=== PATIENT | male | born 1955 | race Caucasian/White ===

== ENCOUNTER 2020-08-23 11:30 | Inpatient (IN) | payer OTHER ==
[~2020-08-23] VITALS: Ht 162.6 cm; Wt 73.0 kg
[2020-08-23] MEDS ORDERED: MORPHINE SULFATE 4 MG/1ML SYG ONE ×2 (12:02→14:44)
[2020-08-23 12:35] LABS: BASOPHILS % (AUTO) 0.1 % (0.0-5.0); EOSINOPHILS % (AUTO) 0.9 % (0.0-8.0); HEMATOCRIT 42.8 % (42-54); LYMPHOCYTES % (AUTO) 9.5 % (21.0-51.0); MEAN CORPUSCULAR HEMOGLOBIN 28.9 pg (27.0-33.0); MEAN CORPUSCULAR HGB CONC 34.6 g/dL (32.0-36.0); MEAN CORPUSCULAR VOLUME 83.6 fL (79-99); MONOCYTES % (AUTO) 4.8 % (3.0-13.0); PLATELET COUNT (AUTO) 126 K/uL (130-400); RED BLOOD CELL COUNT(AUTO) 5.12 MIL/uL (4.50-6.20); RED CELL DISTRIBUTION WIDTH 13.4 % (11.0-15.5)
[2020-08-23 12:47] LABS: POTASSIUM 4.3 mmol/L (3.5-5.1)
[2020-08-23 12:51] LABS: PARTIAL THROMBOPLASTIN TIME 23.9 SEC (26.3-35.5); PROTHROMBIN TIME 10.8 SEC (9.6-11.6)
[2020-08-23 12:54] LABS: ALBUMIN 3.8 g/dL (3.5-5.0); BILIRUBIN,TOTAL 0.4 mg/dL (0.2-1.0); TOTAL PROTEIN, SERUM 7.1 g/dL (6.0-8.3)
[2020-08-23] MEDS ORDERED: ONDANSETRON HCL 4 MG/2 ML VIAL ONE (14:44)
[2020-08-23 15:12] LABS: APPEARANCE,URINE Clear (CLEAR); BILIRUBIN,URINE Negative (NEGATIVE); COLOR,URINE Yellow (YELLOW); GLUCOSE, URINE (UA) Negative (NEGATIVE); KETONES,URINE Trace mg/dL (NEGATIVE); LEUKOCYTE ESTERASE ,URINE Negative (NEGATIVE); NITRATE,URINE Negative (NEGATIVE); OCCULT BLOOD,URINE Negative (NEGATIVE); PROTEIN,URINE Negative (NEGATIVE); UROBILINOGEN,URINE 0.2 mg/dL (0.2-1.0)
[2020-08-23] MEDS ORDERED: HYDROMORPHONE 1 MG/1 ML AMP IV PRN (18:30)
[2020-08-23] MEDS ORDERED: ACETAMINOPHEN 325 MG TAB PO PRN ×2 (18:30)
[2020-08-23] MEDS ORDERED: HYDROMORPHONE HCL 0.5 MG/0.5 ML ML ONE (19:27)
[2020-08-23] MEDS: FAMOTIDINE/PF 20 MG/2 ML VIAL IV SCH (21:00)
[2020-08-24] VITALS (27 sets, daily range): BP systolic 100–157; BP diastolic 52–81
[2020-08-24] MEDS ORDERED: HYDROMORPHONE HCL 0.5 MG/0.5 ML ML ONE (01:24)
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
[2020-08-24] MEDS: MORPHINE SULFATE 4 MG/1ML SYG IV PRN ×2 (04:56→15:02)
[2020-08-24] MEDS: ONDANSETRON HCL 4 MG/2 ML VIAL IV PRN ×2 (05:00→22:12)
[2020-08-24 05:30] LABS: BASOPHILS % (AUTO) 0.1 % (0.0-5.0); EOSINOPHILS % (AUTO) 1.8 % (0.0-8.0); HEMATOCRIT 40.5 % (42-54); LYMPHOCYTES % (AUTO) 17.4 % (21.0-51.0); MEAN CORPUSCULAR HEMOGLOBIN 28.5 pg (27.0-33.0); MEAN CORPUSCULAR HGB CONC 34.1 g/dL (32.0-36.0); MEAN CORPUSCULAR VOLUME 83.5 fL (79-99); MONOCYTES % (AUTO) 8.7 % (3.0-13.0); NEUTROPHILS % (AUTO) 71.4 % (40.0-77.0); PLATELET COUNT (AUTO) 119 K/uL (130-400); RED BLOOD CELL COUNT(AUTO) 4.85 MIL/uL (4.50-6.20); RED CELL DISTRIBUTION WIDTH 13.4 % (11.0-15.5); WHITE BLOOD COUNT (AUTO) 7.1 K/uL (4.8-10.8)
[2020-08-24 05:33] LABS: ALBUMIN 3.5 g/dL (3.5-5.0); BILIRUBIN,TOTAL 0.9 mg/dL (0.2-1.0); CREATININE 1.1 mg/dL (0.5-1.5); POTASSIUM 4.2 mmol/L (3.5-5.1); TOTAL PROTEIN, SERUM 6.7 g/dL (6.0-8.3)
[2020-08-24] MEDS: FAMOTIDINE/PF 20 MG/2 ML VIAL IV SCH ×2 (07:59→23:26)
[2020-08-24] MEDS: KETOROLAC TROMETHAMINE 30MG/ML IM PRN (08:00)
--- NOTE | 2020-08-24 12:27 | NUR ---
IA NOT DONE. Phone number listed not answering.
[2020-08-24] MEDS: DEXTROSE 5 % AND 0.9 % NACL 1,000 ML IV SCH (15:15)
--- NOTE | 2020-08-24 16:16 | NUR ---
DCP CM met with pt in room discussed dc plans. Pt is independent prior to admission, lives at home with spouse. Denies any equipments/services. Feels safe to go back home, still drives, spouse able to assist with transportation and needs as necessary. DC plan to home once stable. CM to continue to follow up. Verified phys addr: [phone] [place] [address] Addendum: 08/24/20 at 1618 by DAVID NEWMAN LVN CM Amended: Links added.
[2020-08-24] MEDS ORDERED: SUCCINYLCHOLINE CHLORIDE 20 MG/ML 10 ML VIAL ONE (17:13)
[2020-08-24] MEDS ORDERED: LIDOCAINE PF 2% 5ML ABBOJECT ONE (17:13)
[2020-08-24] MEDS ORDERED: PROPOFOL 10 MG/ML 20ML VIAL IV ONE (17:14)
[2020-08-24] MEDS ORDERED: FENTANYL CITRATE PF 50 MCG/1 ML 2ML VIAL ONE ×2 (17:14→19:51)
[2020-08-24] MEDS ORDERED: ONDANSETRON HCL 4 MG/2 ML VIAL ONE (17:14)
[2020-08-24] MEDS ORDERED: MIDAZOLAM HCL 1 MG/ML 2ML VIAL ONE (17:14)
[2020-08-24] MEDS ORDERED: ROCURONIUM 10MG/1ML SYR 10 MG/ML ML ONE ×2 (17:14→18:58)
[2020-08-24] MEDS ORDERED: CEFAZOLIN SODIUM 1 GM VIAL ONE (17:16)
[2020-08-24] MEDS ORDERED: LACTATED RINGERS 1000ML 1,000 ML IV ONE (17:16)
[2020-08-24] MEDS ORDERED: TRANEXAMIC ACID 1000MG/10ML ONE (18:10)
[2020-08-24] MEDS ORDERED: MEPERIDINE-PF 25 MG/ML SYG ONE ×3 (18:14→20:52)
[2020-08-24] MEDS ORDERED: NEOSTIGMINE 5MG/5ML SYR IV ONE (19:48)
[2020-08-24] MEDS ORDERED: GLYCOPYRROLATE 1 MG/5 ML SYRINGE ONE (19:48)
[2020-08-24] MEDS ORDERED: ROPIVACAINE 0.5% 5MG/ML 30ML IJ ONE (19:53)
[2020-08-24] MEDS ORDERED: POTASSIUM CHLORIDE 10% ELIXIR 20 MEQ/15 ML UDCUP PO PRN (21:15)
[2020-08-24] MEDS ORDERED: ONDANSETRON HCL 4 MG/2 ML VIAL IVP PRN (21:15)
[2020-08-24] MEDS ORDERED: DiphenhydrAMINE HCL 50 MG/ML VIAL IVP PRN (21:15)
[2020-08-24] MEDS ORDERED: KETOROLAC TROMETHAMINE 15MG/ML IV PRN (21:15)
[2020-08-24] MEDS ORDERED: POTASSIUM CHLORIDE 20MEQ/100ML 100 ML IV PRN (21:15)
[2020-08-24] MEDS ORDERED: CALCIUM CARBONATE 500 MG TABLET PO PRN (21:15)
[2020-08-24] MEDS ORDERED: POTASSIUM CHLORIDE 20 MEQ ERTAB PO PRN (21:15)
[2020-08-24] MEDS: ACETAMINOPHEN EXTRA STRENGTH 500 MG TABLET PO SCH (21:15)
[2020-08-24] MEDS ORDERED: FERROUS FUMARATE 324 MG TABLET PO PRN (21:15)
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
[2020-08-24] MEDS: SODIUM CHLORIDE 0.9% 1000ML 1,000 ML IV SCH (23:25)
[2020-08-25] VITALS (9 sets, daily range): BP systolic 95–122; BP diastolic 51–77
[2020-08-25] MEDS: KETOROLAC TROMETHAMINE 30MG/ML IM PRN ×2 (00:37→16:23)
[2020-08-25] MEDS: CEFAZOLIN SODIUM 1 GM VIAL IVP SCH ×2 (02:12→10:52)
[2020-08-25 03:42] LABS: BASOPHILS % (AUTO) 0.2 % (0.0-5.0); EOSINOPHILS % (AUTO) 0.2 % (0.0-8.0); HEMATOCRIT 32.2 % (42-54); LYMPHOCYTES % (AUTO) 5.6 % (21.0-51.0); MEAN CORPUSCULAR HGB CONC 35.4 g/dL (32.0-36.0); MEAN CORPUSCULAR VOLUME 81.9 fL (79-99); MONOCYTES % (AUTO) 7.6 % (3.0-13.0); PLATELET COUNT (AUTO) 108 K/uL (130-400); RED BLOOD CELL COUNT(AUTO) 3.93 MIL/uL (4.50-6.20); RED CELL DISTRIBUTION WIDTH 13.1 % (11.0-15.5); WHITE BLOOD COUNT (AUTO) 9.1 K/uL (4.8-10.8)
[2020-08-25 03:56] LABS: CREATININE 1.2 mg/dL (0.5-1.5); MAGNESIUM 1.6 mg/dL (1.80-2.40); POTASSIUM 4.7 mmol/L (3.5-5.1)
[2020-08-25] MEDS: ACETAMINOPHEN EXTRA STRENGTH 500 MG TABLET PO SCH ×3 (05:55→21:26)
[2020-08-25] MEDS: DEXTROSE 5 % AND 0.9 % NACL 1,000 ML IV SCH ×2 (06:39→21:29)
[2020-08-25] MEDS ORDERED: MAGNESIUM 2GM PREMIX 50ML 50 ML IV SCH (08:15)
[2020-08-25] MEDS: POLYETHYLENE GLYCOL 3350 17 GM POWD.PACK PO SCH (09:00)
[2020-08-25] MEDS: ONDANSETRON HCL 4 MG/2 ML VIAL IV PRN ×2 (10:44→21:26)
[2020-08-25] MEDS: FAMOTIDINE/PF 20 MG/2 ML VIAL IV SCH ×2 (10:45→20:00)
[2020-08-25] MEDS: FAMOTIDINE 20MG TAB 20 MG TAB PO SCH ×2 (10:47→21:27)
[2020-08-25] MEDS: CELECOXIB 200 MG CAP PO SCH ×2 (10:47→21:26)
[2020-08-25] MEDS: PREGABALIN 25 MG CAP PO SCH ×2 (10:47→21:26)
[2020-08-25] MEDS: SODIUM CHLORIDE 0.9% 1000ML 1,000 ML IV SCH (17:15)
--- NOTE | 2020-08-25 18:00 | NUR ---
CALLED FOR UPDATE.
--- NOTE | 2020-08-25 20:00 | NUR ---
assessment and teaching patient awake, alert, ox3, no sob,no c/o pain at this time, encourage deep breathing exercises, teach patient plan of care and expected outcome , patients dressing right hip d/i, sitting bedside chair, patient verbalizes understanding via teach back
--- NOTE | 2020-08-25 21:25 | NUR ---
nursing obs assist back to bed with assistance of walker, tolerated well, instructed patient to call nurse for assistance
[2020-08-25] MEDS: OXYCODONE HCL 5 MG TAB PO PRN (21:26)
[2020-08-26] VITALS (7 sets, daily range): BP systolic 99–122; BP diastolic 42–64
[2020-08-26] MEDS: ACETAMINOPHEN EXTRA STRENGTH 500 MG TABLET PO SCH ×2 (05:09→14:07)
[2020-08-26 05:43] LABS: BASOPHILS % (AUTO) 0.1 % (0.0-5.0); CREATININE 1.2 mg/dL (0.5-1.5); EOSINOPHILS % (AUTO) 1.7 % (0.0-8.0); HEMATOCRIT 29.3 % (42-54); LYMPHOCYTES % (AUTO) 13.2 % (21.0-51.0); MAGNESIUM 2.3 mg/dL (1.80-2.40); MEAN CORPUSCULAR HEMOGLOBIN 28.8 pg (27.0-33.0); MEAN CORPUSCULAR HGB CONC 34.8 g/dL (32.0-36.0); MEAN CORPUSCULAR VOLUME 82.8 fL (79-99); MONOCYTES % (AUTO) 14.9 % (3.0-13.0); NEUTROPHILS % (AUTO) 69.5 % (40.0-77.0); PLATELET COUNT (AUTO) 89 K/uL (130-400); POTASSIUM 4.1 mmol/L (3.5-5.1); RED BLOOD CELL COUNT(AUTO) 3.54 MIL/uL (4.50-6.20); RED CELL DISTRIBUTION WIDTH 13.5 % (11.0-15.5); WHITE BLOOD COUNT (AUTO) 7.1 K/uL (4.8-10.8)
[2020-08-26] MEDS: OXYCODONE HCL 5 MG TAB PO PRN ×2 (08:56→19:45)
[2020-08-26] MEDS: PREGABALIN 25 MG CAP PO SCH ×2 (08:57→19:45)
[2020-08-26] MEDS: CELECOXIB 200 MG CAP PO SCH ×2 (08:57→19:45)
[2020-08-26] MEDS: FAMOTIDINE 20MG TAB 20 MG TAB PO SCH ×2 (08:57→19:45)
[2020-08-26] MEDS: FAMOTIDINE/PF 20 MG/2 ML VIAL IV SCH ×2 (09:00→19:46)
[2020-08-26] MEDS: POLYETHYLENE GLYCOL 3350 17 GM POWD.PACK PO SCH ×2 (09:00→09:45)
[2020-08-26 17:35] LABS: ALBUMIN 2.8 g/dL (3.5-5.0); BILIRUBIN,DIRECT 0.2 mg/dL (0.0-0.3); BILIRUBIN,TOTAL 0.7 mg/dL (0.2-1.0); TOTAL PROTEIN, SERUM 5.8 g/dL (6.0-8.3)
[2020-08-26] MEDS: ENOXAPARIN SODIUM 40 MG/0.4 ML SYRINGE SQ SCH (19:46)
--- NOTE | 2020-08-26 20:00 | NUR ---
assessment note patient awake alert, ox3, no sob, c/o pain, see pain assessment and treatment, reinforce is as previously done, teach patient plan of care and expected outcome, patient verbalizes understanding via teach back
[2020-08-27 04:33] VITALS: BP 114/68
[2020-08-27 06:10] LABS: HEMATOCRIT 27.3 % (42-54)
[2020-08-27] MEDS: POLYETHYLENE GLYCOL 3350 17 GM POWD.PACK PO SCH (07:53)
[2020-08-27] MEDS: OXYCODONE HCL 5 MG TAB PO PRN ×2 (07:54→20:46)
[2020-08-27] MEDS: CELECOXIB 200 MG CAP PO SCH ×2 (07:55→20:46)
[2020-08-27] MEDS: PREGABALIN 25 MG CAP PO SCH ×2 (07:55→20:46)
[2020-08-27] MEDS: FAMOTIDINE 20MG TAB 20 MG TAB PO SCH ×2 (07:56→20:46)
[2020-08-27] MEDS: ENOXAPARIN SODIUM 40 MG/0.4 ML SYRINGE SQ SCH (07:58)
[2020-08-27] MEDS: BISACODYL 5 MG TABLET.DR PO PRN (07:59)
[2020-08-27 08:33] VITALS: BP 106/57
[2020-08-27] MEDS: FAMOTIDINE/PF 20 MG/2 ML VIAL IV SCH ×2 (09:00→19:37)
[2020-08-27] MEDS ORDERED: COMPOUND IV MISC 1 EACH IVSOLN MISC PRN (09:00)
[2020-08-27] MEDS: IRON SUCROSE COMPLEX 100 MG in SODIUM CHLORIDE 0.9% 50 ML IV SCH (10:20)
[2020-08-27 11:44] VITALS: BP 97/73
--- NOTE | 2020-08-27 14:00 | NUR ---
CM note met with patient spouse and discussed rehab orders. pt states he prefers [facility] re[facility], and does not want to go to any snf, choice letter obtained.
[2020-08-27 16:58] VITALS: BP 111/66
[2020-08-27 20:18] VITALS: BP 103/54
--- NOTE | 2020-08-27 21:00 | NUR ---
BOWEL MOVEMENT PATIENT NO BOWEL MOVEMENT 3 DAYS, PT REFUSING DULCOLAX SUPP, EXPLAINED IMPORTANCE OF HAVING BOWEL MOVEMENT, PATIENT STATEED " IF I DONT HAVE BOWEL MOVEMENT TONIGHT I WILL TAKE SUPPOSITORY TOMORROW MORNING"
[2020-08-27] MEDS ORDERED: BISACODYL 10 MG SUPP.RECT RC PRN (21:15)
[2020-08-27 23:31] VITALS: BP 111/63
[2020-08-28 03:40] VITALS: BP 113/71
[2020-08-28 05:55] LABS: HEMATOCRIT 28.4 % (42-54)
[2020-08-28] MEDS: BISACODYL 5 MG TABLET.DR PO PRN (08:01)
[2020-08-28] MEDS: OXYCODONE HCL 5 MG TAB PO PRN ×3 (08:02→23:48)
[2020-08-28 08:23] VITALS: BP 103/51
[2020-08-28] MEDS: POLYETHYLENE GLYCOL 3350 17 GM POWD.PACK PO SCH (09:00)
[2020-08-28] MEDS: FAMOTIDINE/PF 20 MG/2 ML VIAL IV SCH ×2 (09:00→19:45)
[2020-08-28] MEDS ORDERED: MAGNESIUM CITRATE 296 ML SOLUTION PO SCH (09:15)
[2020-08-28] MEDS: PREGABALIN 25 MG CAP PO SCH ×2 (10:07→19:45)
[2020-08-28] MEDS: CELECOXIB 200 MG CAP PO SCH ×2 (10:07→19:45)
[2020-08-28] MEDS: FAMOTIDINE 20MG TAB 20 MG TAB PO SCH ×2 (10:07→19:45)
[2020-08-28] MEDS: ENOXAPARIN SODIUM 40 MG/0.4 ML SYRINGE SQ SCH (10:08)
[2020-08-28] MEDS: IRON SUCROSE COMPLEX 100 MG in SODIUM CHLORIDE 0.9% 50 ML IV SCH (11:17)
[2020-08-28 12:00] VITALS: BP 108/64
[2020-08-28 16:04] VITALS: BP 116/56
[2020-08-28 20:00] VITALS: BP 113/61
[2020-08-28] MEDS: MORPHINE SULFATE 4 MG/1ML SYG IV PRN (21:38)
[2020-08-28 23:51] VITALS: BP 115/70
[2020-08-29] MEDS: MORPHINE SULFATE 4 MG/1ML SYG IV PRN ×3 (00:56→19:29)
[2020-08-29] MEDS: OXYCODONE HCL 5 MG TAB PO PRN ×3 (03:27→17:56)
[2020-08-29 03:56] VITALS: BP 132/64
[2020-08-29] MEDS: PREGABALIN 25 MG CAP PO SCH ×2 (07:44→19:29)
[2020-08-29] MEDS: POLYETHYLENE GLYCOL 3350 17 GM POWD.PACK PO SCH (07:44)
[2020-08-29] MEDS: CELECOXIB 200 MG CAP PO SCH ×2 (07:44→19:29)
[2020-08-29] MEDS: FAMOTIDINE 20MG TAB 20 MG TAB PO SCH ×2 (07:45→19:29)
[2020-08-29] MEDS: ENOXAPARIN SODIUM 40 MG/0.4 ML SYRINGE SQ SCH (07:46)
[2020-08-29 08:15] VITALS: BP 127/76
[2020-08-29 08:22] LABS: BASOPHILS % (AUTO) 0.5 % (0.0-5.0); EOSINOPHILS % (AUTO) 2.7 % (0.0-8.0); LYMPHOCYTES % (AUTO) 19.2 % (21.0-51.0); MEAN CORPUSCULAR HEMOGLOBIN 28.8 pg (27.0-33.0); MEAN CORPUSCULAR HGB CONC 33.6 g/dL (32.0-36.0); MEAN CORPUSCULAR VOLUME 85.8 fL (79-99); MONOCYTES % (AUTO) 13.2 % (3.0-13.0); NEUTROPHILS % (AUTO) 62.7 % (40.0-77.0); PLATELET COUNT (AUTO) 144 K/uL (130-400); RED BLOOD CELL COUNT(AUTO) 3.37 MIL/uL (4.50-6.20); RED CELL DISTRIBUTION WIDTH 13.8 % (11.0-15.5)
[2020-08-29] MEDS: FAMOTIDINE/PF 20 MG/2 ML VIAL IV SCH ×2 (09:00→19:30)
[2020-08-29] MEDS: IRON SUCROSE COMPLEX 100 MG in SODIUM CHLORIDE 0.9% 50 ML IV SCH (09:05)
[2020-08-29 11:48] VITALS: BP 127/73
--- NOTE | 2020-08-29 14:20 | NUR ---
Pt. had stair training today in PM. Demonstrated and explained to pt. reasoning for going up with the good leg first and down with the bad leg first. Pt. returned demonstrated and understood instructions. No further questions from pt. Addendum: 08/29/20 at 1424 by JOSEY NEWMAN PT PT Amended: Links added.
--- NOTE | 2020-08-29 16:09 | NUR ---
GARETH PLAN VISITED WITH PATIENT. GAVE HIM UPDATES AND OPTIONS. SAID WILL GO HOME. JANET SIGNED FOR ANY IN NETWORK. WILL TRY FOR [facility]. SPOKE TO MIGUEL FROM WORK [facility] SAID THEY NEVER RECEIVED A REQUEST FROM [facility]. CALLED ME BACK WITH WHICH DME AND HOME HEALTH MIGHT BE IN NETWORK. INFO SENT TO BOTH CM WILL CONTINUE TO FOLLOW. Addendum: 08/29/20 at 1622 by WILBERT MCLAIN RN Amended: Links added.
[2020-08-29 17:02] VITALS: BP 122/75
[2020-08-29 20:00] VITALS: BP 108/53
[2020-08-29] MEDS ORDERED: TEMAZEPAM 7.5 MG CAPSULE PO PRN (22:15)
[2020-08-29] MEDS ORDERED: TEMAZEPAM 7.5 MG CAPSULE PO ONE (22:31)
[2020-08-30] VITALS: BP 123/62
[2020-08-30] MEDS ORDERED: HYDROMORPHONE HCL 2 MG/ML VIAL IVP PRN
[2020-08-30] MEDS: MORPHINE SULFATE 4 MG/1ML SYG IV PRN
[2020-08-30 04:04] VITALS: BP 100/73
[2020-08-30 05:44] LABS: BASOPHILS % (AUTO) 0.6 % (0.0-5.0); EOSINOPHILS % (AUTO) 3.6 % (0.0-8.0); HEMATOCRIT 28.4 % (42-54); LYMPHOCYTES % (AUTO) 18.6 % (21.0-51.0); MEAN CORPUSCULAR HEMOGLOBIN 28.3 pg (27.0-33.0); MEAN CORPUSCULAR HGB CONC 33.5 g/dL (32.0-36.0); MEAN CORPUSCULAR VOLUME 84.5 fL (79-99); MONOCYTES % (AUTO) 13.7 % (3.0-13.0); NEUTROPHILS % (AUTO) 58.2 % (40.0-77.0); PLATELET COUNT (AUTO) 144 K/uL (130-400); RED BLOOD CELL COUNT(AUTO) 3.36 MIL/uL (4.50-6.20); RED CELL DISTRIBUTION WIDTH 13.7 % (11.0-15.5); WHITE BLOOD COUNT (AUTO) 4.7 K/uL (4.8-10.8)
[2020-08-30 05:55] LABS: POTASSIUM 4.3 mmol/L (3.5-5.1)
[2020-08-30 07:41] LABS: BILIRUBIN,URINE Negative (NEGATIVE); COLOR,URINE Yellow (YELLOW); GLUCOSE, URINE (UA) Negative (NEGATIVE); KETONES,URINE Negative (NEGATIVE); LEUKOCYTE ESTERASE ,URINE Negative (NEGATIVE); NITRATE,URINE Negative (NEGATIVE); OCCULT BLOOD,URINE Negative (NEGATIVE); PH,URINE 7.5 (5.0-8.0); PROTEIN,URINE Negative (NEGATIVE)
[2020-08-30 07:47] LABS: APPEARANCE,URINE CLEAR (CLEAR)
[2020-08-30] MEDS: ENOXAPARIN SODIUM 40 MG/0.4 ML SYRINGE SQ SCH (08:03)
[2020-08-30] MEDS: OXYCODONE HCL 5 MG TAB PO PRN ×2 (08:04→17:29)
[2020-08-30 08:07] VITALS: BP 110/69
[2020-08-30] MEDS: FAMOTIDINE 20MG TAB 20 MG TAB PO SCH ×2 (08:10→19:54)
[2020-08-30] MEDS: IRON SUCROSE COMPLEX 100 MG in SODIUM CHLORIDE 0.9% 50 ML IV SCH (08:11)
[2020-08-30] MEDS: CELECOXIB 200 MG CAP PO SCH ×2 (08:11→19:54)
[2020-08-30] MEDS: POLYETHYLENE GLYCOL 3350 17 GM POWD.PACK PO SCH (08:12)
[2020-08-30] MEDS: PREGABALIN 25 MG CAP PO SCH ×2 (08:12→19:54)
[2020-08-30 11:54] VITALS: BP 136/95
--- NOTE | 2020-08-30 12:55 | NUR ---
GARETH MAI SPOKE TO [facility]AT[facility]UNG AND TO NINA. A LOT OF ISSUES WITH [facility]. SPOKE TO MEE FROM [facility] RE[facility]ED NAME TO BE CHANGED ON FACE SHEET. SAID THEY ARE NOT [facility]. LET FARNAZ KNOW OF REQUEST. GOT A CALL BACK FROM [facility] REGARDING CLAIM NUMBER [id number] DATE OF INJURY 08/23/2020. CALLED [facility] JUNG AND NINA GAVE THEM CLAIM NUMBER AND MORE PHONE NUMBERS TO CALL. Addendum: 08/30/20 at 1301 by WILBERT MCLAIN RN CM Amended: Links added.
--- NOTE | 2020-08-30 16:00 | NUR ---
DRESSING TO SURGICAL WOUND CHANGED, WOUND CLEAN AND CLOSED, [address] NO DRAINAGE, NO REDNESS OR SWELLING TO WOUND .
[2020-08-30 17:00] VITALS: BP 109/59
[2020-08-30] MEDS: TRAMADOL HCL 50 MG TABLET PO PRN (19:54)
[2020-08-30 20:04] VITALS: BP 107/59
[2020-08-31] VITALS (7 sets, daily range): BP systolic 103–133; BP diastolic 58–65
[2020-08-31] MEDS: OXYCODONE HCL 5 MG TAB PO PRN ×2 (07:58→18:23)
[2020-08-31] MEDS: IRON SUCROSE COMPLEX 100 MG in SODIUM CHLORIDE 0.9% 50 ML IV SCH (08:47)
[2020-08-31] MEDS: ENOXAPARIN SODIUM 40 MG/0.4 ML SYRINGE SQ SCH (08:48)
[2020-08-31] MEDS: CELECOXIB 200 MG CAP PO SCH ×2 (08:49→20:38)
[2020-08-31] MEDS: POLYETHYLENE GLYCOL 3350 17 GM POWD.PACK PO SCH (08:49)
[2020-08-31] MEDS: PREGABALIN 25 MG CAP PO SCH ×2 (08:49→20:38)
[2020-08-31] MEDS: FAMOTIDINE 20MG TAB 20 MG TAB PO SCH ×2 (08:49→20:38)
--- NOTE | 2020-08-31 15:06 | NUR ---
patient is able to get OOB to chair, go to the bathroom using SW at [facility]. Also patient is ambulating in the hallway a total of 150 ft using standard walker at [facility] with no LOB noted. Will endorse to Nursing, notified WALTER oStomayor and ZaidRN regarding this matter. Addendum: 08/31/20 at 1508 by DAKOTA BURDEN, PT PT Amended: Links added.
[2020-09-01 03:47] VITALS: BP 128/63
[2020-09-01 08:02] VITALS: BP 122/72
[2020-09-01] MEDS: TRAMADOL HCL 50 MG TABLET PO PRN (08:17)
[2020-09-01] MEDS: IRON SUCROSE COMPLEX 100 MG in SODIUM CHLORIDE 0.9% 50 ML IV SCH (09:19)
[2020-09-01] MEDS: POLYETHYLENE GLYCOL 3350 17 GM POWD.PACK PO SCH (09:19)
[2020-09-01] MEDS: FAMOTIDINE 20MG TAB 20 MG TAB PO SCH (09:19)
[2020-09-01] MEDS: PREGABALIN 25 MG CAP PO SCH (09:19)
[2020-09-01] MEDS: ENOXAPARIN SODIUM 40 MG/0.4 ML SYRINGE SQ SCH (09:19)
[2020-09-01] MEDS: CELECOXIB 200 MG CAP PO SCH (09:19)
[2020-09-01 11:23] VITALS: BP 119/63
[2020-09-01 16:23] VITALS: BP 99/62
--- NOTE | 2020-09-01 16:40 | NUR ---
PATIENT GIVEN DISCHARGE INSTRUCTIONS AND EDUCATION ON FOLLOW UP APPOINTMENT WITH DR. VIEYRA, NEW RX (ELIQUIS, TYLENOL #3), WBAT, DRY DRESSING CARE AND REMOVAL DATE EVERYDAY WITH HOME HEALTH, AND S/S TO REPORT TO MD. PATIENT VERBALIZED UNDERSTANDING OFALL EDUCATION GIVEN VIA TEACH BACK. DRESSING CHANGED DONE USING STERILE TECHNIQUE, NO ABNORMAL S/S NOTED. NEW DRY DRESSING APPLIED, DRESSING INTACT, RX VERIFIED, PHARMACY VERIFIED WITH PATIENT. IV DISCONTINUED AND CATHETER INTACT. REPORT CALLED TO CHEO GUO) AT [facility], SHE WAS NOTIFIED OF FOLLOW UP APPOINTMENTS, WBAT, DRESSING CARE, AND S/S TO REPORT TO MD, ALL QUESTIONS ANSWERED ACCORDINGLY.
== END 2020-09-01 17:25 | disposition home health service (06) | DRG 522 ==
LOC: EDH 11:30 → EDHIP 16:01 → 3AH 08-24 02:19
PROVIDERS: ADMIT Hospitalist; ATTEND Hospitalist
PROC: 0SRB02A Replacement of Left Hip Joint with Metal on Polyethylene Synthetic Substitute, Uncemented, Open Approach (ICD-10-PCS; principal; 2020-08-24 17:21)
DX: S72.011A Unspecified intracapsular fracture of right femur, initial encounter for closed fracture (principal); D64.9 Anemia, unspecified; K59.00 Constipation, unspecified; M16.10 Unilateral primary osteoarthritis, unspecified hip; W11.XXXA Fall on and from ladder, initial encounter; Y93.89 Activity, other specified; Y92.89 Other specified places as the place of occurrence of the external cause; Y99.8 Other external cause status
CPT/HCPCS: 36415; 71045; 73502; 80048; 80053; 80076; 81003; 82565; 83735; 83880; 84145; 84484; 85014; 85018; 85025; 85610; 85730; 87426; 93005; 93970; 97039; G0378; J0330; J0690; J1170; J1650; J1756; J1885; J2001; J2175; J2250; J2270; J2405; J2704; J2710; J2795; J3010; J3475; J3490; J7030; J7120; U0003